=== PATIENT | male | born 1955 | race Caucasian/White ===

== ENCOUNTER 2017-04-24 12:56 | Emergency (ER) | payer MEDICARE, OTHER ==
[2017-04-24] MEDS ORDERED: LIDOCAINE 1%/EPINEPHRINE INJ 20 ML VIAL INJ ONE (13:33)
--- NOTE | 2017-04-24 13:58 | RADIOLOGY REPORT (SQ) ---
EXAM DESCRIPTION: CT HEAD WITHOUT COMPLETED DATE/TIME: 04/24/2017 1:46 pm REASON FOR STUDY: fall COMPARISON: None. TECHNIQUE: Axial images acquired through the brain without intravenous contrast. Images reviewed wi th bone, brain and subdural windows. Images stored on PACS. All CT scanners at this facility use dose modulation, iterative reconstruction, and/or weight based d osing when appropriate to reduce radiation dose to as low as reasonably achievable (ALARA). [facility]: Dose Right [facility]: CareDose [facility]: Dose Right [facility]: Teradose 4D [facility]: Smart No Paper Just Vapor RADIATION DOSE: CT Rad equipment meets quality standard of care and radiation dose reduction techniq ues were employed. CTDIvol: 64.6 mGy. DLP: 1163 mGy-cm. mGy. LIMITATIONS: None. FINDINGS: VENTRICLES: Normal size and contour. CEREBRUM: No mass effect. No hemorrhage. No midline shift. Normal baarca/white matter differentiatio n. No evidence for acute territorial infarction. CEREBELLUM: No mass effect. No hemorrhage. No alteration of density. No evidence for acute infarct ion. EXTRAAXIAL SPACES: No fluid collections. ORBITS AND GLOBE: Symmetrical contour of the globes. CALVARIUM: No depressed skull fracture. PARANASAL SINUSES: Mild mucosal thickening at the left maxillary sinus. SOFT TISSUES: Small hematoma at the soft tissues overlying the posterior left parietal region. IMPRESSION: Scalp hematoma at the posterior left parietal region with no acute intracranial hemorrha ge or underlying depressed calvarial fracture. EVIDENCE OF ACUTE STROKE: NO. COMMENT: Quality ID # [id number]: Final reports with documentation of one or more dose reduction techniques (e.g., Automated exposure control, adjustment of the mA and/or kV according to patient size, use of iterative reconstruction technique) TECHNICAL DOCUMENTATION: JOB ID: [id number] [id number]- All Rights Reserved
[2017-04-24] MEDS ORDERED: LIDOCAINE 1% INJ-PF (10 MG/ML) 30 ML SDV INJ ONE (14:05)
--- NOTE | 2017-04-24 14:55 | ER Document Report ---
ED General - General Chief Complaint: Fall Stated Complaint: FALL,HEAD LACERATION Time Seen by Provider: 04/24/17 13:18 - HPI Patient complains to provider of: Fall head laceration Notes: Patient coming in for evaluation of head laceration. Patient states is walking out in front porch today when he slipped fell hitting the back of his head causing laceration. Patient denies any blood thinning medications of her aspirin denies any loss of consciousness. - Related Data Allergies/Adverse Reactions: cefepime Allergy (Verified 04/24/17 13:08) gentamicin Allergy (Verified 04/24/17 13:08) Past Medical History - Social History Smoking Status: Never Smoker Frequency of alcohol use: None Drug Abuse: None Family History: Reviewed & Not Pertinent Patient has suicidal ideation: No Patient has homicidal ideation: No - Past Medical History Cardiac Medical History: Reports: Hx Hypertension Renal/ Medical History: Denies: Hx Peritoneal Dialysis Past Surgical History: Reports: Hx Cardiac Catheterization Review of Systems - Review of Systems Constitutional: Other - Laceration head injury EENT: No symptoms reported Cardiovascular: No symptoms reported Respiratory: No symptoms reported Gastrointestinal: No symptoms reported Genitourinary: No symptoms reported Male Genitourinary: No symptoms reported Musculoskeletal: No symptoms reported Skin: No symptoms reported Hematologic/Lymphatic: No symptoms reported Neurological/Psychological: No symptoms reported -: Yes All other systems reviewed and negative Physical Exam - Vital signs Vitals: Temp Pulse Resp BP Pulse Ox 98.5 F 69 18 165/76 H 99 04/24/17 13:05 04/24/17 13:05 04/24/17 13:05 04/24/17 13:05 04/24/17 13:05 Interpretation: Normal - General General appearance: Appears well, Alert - HEENT Head: Normocephalic. No: Atraumatic - Occipital laceration next approximately 6 cm Eyes: Normal Pupils: PERRL - Respiratory Respiratory status: No respiratory distress Chest status: Nontender Breath sounds: Normal Chest palpation: Normal - Cardiovascular Rhythm: Regular Heart sounds: Normal auscultation Murmur: No - Abdominal Inspection: Normal Distension: No distension Bowel sounds: Normal Tenderness: Nontender Organomegaly: No organomegaly - Back Back: Normal, Nontender - Extremities General upper extremity: Normal inspection, Nontender, Normal color, Normal ROM , Normal temperature General lower extremity: Normal inspection, Nontender, Normal color, Normal ROM , Normal temperature, Normal weight bearing. No: Kylah's sign - Neurological Neuro grossly intact: Yes Cognition: Normal Orientation: AAOx4 Leonides Coma Scale Eye Opening: Spontaneous Leonides Coma Scale Verbal: Oriented Leonides Coma Scale Motor: Obeys Commands Dillon Coma Scale Total: 15 Speech: Normal Motor strength normal: LUE, RUE, LLE, RLE Sensory: Normal - Psychological Associated symptoms: Normal affect, Normal mood - Skin Skin Temperature: Warm Skin Moisture: Dry Skin Color: Normal Course - Re-evaluation Re-evalutation: 04/24/17 16:02 6 cm occipital laceration with a negative CT scan. Initially sultana were placed in however a small little arterial proper did present self therefore sultana were removed into 3-0 nylon sutures were placed with successful hemostasis. Patient will be discharged home. - Vital Signs Vital signs: Temp Pulse Resp BP Pulse Ox 98.7 F 69 18 153/77 H 97 04/24/17 15:02 04/24/17 15:02 04/24/17 15:02 04/24/17 15:02 04/24/17 15:02 Procedures - Laceration/Wound Repair Head Wound length (cm): 6 Wound's Depth, Shape: Linear Anesthetic type: 1% Lidocaine Volume Anesthetic (mLs): 6 Wound explored: Clean Irrigated w/ Saline (mLs): 500 Wound Repaired With: Sutures, Sultana - 8 sultana Suture Size/Type: 3:0, Nylon - 2 Number of Sutures: 2 Complications: No Discharge - Discharge Clinical Impression: Laceration of head Qualifiers: Encounter type: initial encounter Location of open wound of head: unspecified part of head Foreign body presence: without foreign body Qualified Code(s): S01.91XA - Laceration without foreign body of unspecified part of head, initial encounter Head injury Qualifiers: Encounter type: initial encounter Qualified Code(s): S09.90XA - Unspecified injury of head, initial encounter Condition: Good Disposition: HOME, SELF-CARE Instructions: Head Injury Precautions ([facility]), Laceration Care ([facility]), Care of Stapled Wounds ([facility]) Additional Instructions: Please have your sutures and sultana removed in the next 7 days. Return to the ER if symptoms worsen. Follow-up with your primary care physician. Return to the ER for any concerns. Referrals: FACUNDO LEACH, [employer] D[employer] MANAGER [Primary Care Provider] - Follow up as needed
[2017-04-24 15:03] VITALS: BP 153/77
== END 2017-04-24 15:01 | disposition home or self-care (01) ==
LOC: ER 12:56
PROC: 0HQ0XZZ Repair Scalp Skin, External Approach (ICD-10-PCS; principal; 2017-04-24)
DX: S01.01XA Laceration without foreign body of scalp, initial encounter (principal); W01.10XA Fall on same level from slipping, tripping and stumbling with subsequent striking against unspecified object, initial encounter; Y92.009 Unspecified place in unspecified non-institutional (private) residence as the place of occurrence of the external cause; I10 Essential (primary) hypertension
CPT/HCPCS: 99283; 70450; 12002; J3490